=== PATIENT | male | born 2005 | race Caucasian/White ===

== ENCOUNTER 2023-05-24 16:27 | Outpatient (REF) | payer BC, SELFPAY ==
[2023-05-26 01:04] LABS: Adenovirus DNA Result Negative (Negative); Metapneumovirus RNA Result Negative (Negative); Parainfluenza Type1 RNA Result Negative (Negative); Parainfluenza Type2 RNA Result Negative (Negative); Parainfluenza Type3 RNA Result Negative (Negative); Parainfluenza Type4 RNA Result Negative (Negative); Rhinovirus RNA Result Negative (Negative)
[2023-05-27 10:05] LABS: Measles IgG Antibody Positive (See Note)
[2023-05-28 16:24] LABS: Measles (Rubeola), IgM Negative (Negative)
== END 2023-05-24 16:28 | disposition home or self-care (01) ==
LOC: LBN 16:27
PROVIDERS: Visit Provider Physician Assistant
DX: J02.9 Acute pharyngitis, unspecified (principal); R21 Rash and other nonspecific skin eruption; B05.9 Measles without complication
CPT/HCPCS: 86765; 87632; 87070